=== PATIENT | male | born 1985 | race Caucasian/White ===

== ENCOUNTER 2018-06-06 18:26 | Emergency (ER) | payer OTHER ==
[2018-06-06 18:39] VITALS: BP 123/72; PULSE 89; TEMP 97.9; BMI 35.5
--- NOTE | 2018-06-06 19:09 | PDOC ---
History of Present Illness - General Chief Complaint: Pain, Acute Stated Complaint: RIGHT CALF PAIN Time Seen by Provider: 06/06/18 18:53 History Source: Patient Exam Limitations: Clinical Condition - History of Present Illness Initial Comments: 06/06/18 19:06 Patient with no significant past medical history present with complaint of right calf muscle pain which started as pain to lower back and posterior thigh and has now gone down to right calf muscle. Patient reported pain to right side of the lower back and posterior calf muscle has improved but now has persistent pain to right calf muscle to which he describes 5/10 cramping pain. Patient denies any other symptoms.Patient did not take anything for pain Timing/Duration: 1 week Past History - Past Medical History Allergies/Adverse Reactions: Allergies Allergy/AdvReac Type Severity Reaction Status Date / Time No Known Allergies Allergy Verified 12/01/15 20:54 Home Medications: Ambulatory Orders Methocarbamol [Robaxin -] 500 mg PO BID PRN #14 tablet 06/06/18 Naproxen 500 mg PO BID PRN #20 tablet 06/06/18 COPD: No CHF: No HTN: No - Surgical History Lung Surgery: No - Immunization History Immunization Up to Date: Yes - Suicide/Smoking/Psychosocial Hx Smoking Status: Yes Smoking History: Current every day smoker Have you smoked in the past 12 months: No Number of Cigarettes Smoked Daily: 24 Information on smoking cessation initiated: No Hx Alcohol Use: No Drug/Substance Use Hx: No Substance Use Type: None Review of Systems - Review of Systems Able to Perform ROS?: Yes Is the patient limited Panamanian proficient: No Constitutional: No: Weakness HEENTM: No: Eye Pain, Blurred Vision, Recent change in vision Respiratory: No: Symptoms reported Cardiac (ROS): No: Symptoms Reported ABD/GI: No: Nausea, Vomiting Musculoskeletal: Yes: See HPI, Muscle Pain (right calf). No: Joint Swelling, Muscle Weakness, Joint Stiffness Integumentary: No: Bruising, Change in Color, Erythema Neurological: No: Numbness, Paresthesia, Tingling, Weakness All Other Systems: Reviewed and Negative *Physical Exam - Vital Signs Last Vital Signs Temp Pulse Resp BP Pulse Ox 97.9 F 89 18 123/72 97 06/06/18 18:37 06/06/18 18:37 06/06/18 18:37 06/06/18 18:37 06/06/18 18:37 - Physical Exam Comments: 06/06/18 19:09 GENERAL: Well developed, well nourished. Awake and alert. No acute distress. CARDIOVASCULAR: Regular rate and rhythm. No murmurs, rubs, or gallops. PULMONARY: No evidence of respiratory distress. Lungs clear to auscultation bilaterally. No wheezing, rales or rhonchi. ABDOMINAL: Soft. Non-tender. Non-distended. No rebound or guarding. No organomegaly. Normoactive bowel sounds MUSCULOSKELETAL : mild tenderness over posterior calf muscle. No bony deformities EXTREMITIES: No cyanosis. No clubbing. No edema. mild right calf tenderness. negative horman' s sign. no increased warmth or erythema to LE b/l. SKIN: Warm and dry. Normal capillary refill. NEUROLOGICAL: Alert, awake, appropriate. No motor deficits in the lower extremities. Gait is normal without ataxia. PSYCHIATRIC: Cooperative. Good eye contact. Appropriate mood and affect. General Appearance: Yes: Nourished, Appropriately Dressed. No: Apparent Distress Moderate Sedation - Procedure Monitoring Vital Signs: Procedure Monitoring Vital Signs Temperature 97.9 F 06/06/18 18:37 Pulse Rate 89 06/06/18 18:37 Respiratory Rate 18 06/06/18 18:37 Blood Pressure 123/72 06/06/18 18:37 O2 Sat by Pulse Oximetry (%) 97 06/06/18 18:37 ED Treatment Course - RADIOLOGY Radiology Studies Ordered: Category Date Time Status DUPLEX VASCUL US-1 LEG [US] Stat Ultrasound 06/06/18 18:57 Ordered Medical Decision Making - Medical Decision Making 06/06/18 19:11 Patient with no significant past medication present with complaint of right calf pain which started as crampy lower back pain radiating down to posterior right thigh down to right lower leg and now has localized pain to right calf muscle for week. Patient denies any numbness or tingling sensation. Exam significant for mild tenderness over right calf muscle. No erythema or increased warmth to lower extremity bilateral. Negative Homans sign. Symptoms likely muscle strain and less likely DVT. Duplex of right lower extremity ordered to rule out DVT. Patient was discharged home on NSAIDs and muscle relaxer if negative duplex. 06/06/18 19:55 Duplex ultrasound of right lower extremity negative for DVT. Patient symptoms likely muscle spasm is stable for discharge on NSAIDs and muscle relaxer with orthopedist follow-up as needed. *DC/Admit/Observation/Transfer Diagnosis at time of Disposition: Muscle spasm of calf - Discharge Dispostion Disposition: HOME Condition at time of disposition: Stable Decision to Admit order: No - Prescriptions Prescriptions: Methocarbamol [Robaxin -] 500 mg PO BID PRN #14 tablet PRN Reason: muscle cramps Naproxen 500 mg PO BID PRN #20 tablet PRN Reason: pain - Referrals Referrals: Rashawn Meade MD [Primary Care Provider] - Bakari Moore MD [Staff Physician] - - Patient Instructions Printed Discharge Instructions: DI for Nocturnal Leg Cramps Additional Instructions: Your ultrasound of the leg was normal and shows no DVT. Your symptoms is likely from muscle spasm. Take medication as needed for pain. Follow-up referred orthopedics if symptoms persist for more than 4 days. - Post Discharge Activity
== END 2018-06-06 20:02 | disposition home or self-care (01) ==
LOC: JERFT 18:26
DX: R25.2 Cramp and spasm (principal); M62.830 Muscle spasm of back
CPT/HCPCS: 93971-TC; 99281-25

== ENCOUNTER 2018-06-20 16:04 | Emergency (ER) | payer OTHER ==
--- NOTE | 2018-06-20 16:12 | PDOC ---
Rapid Medical Evaluation Time Seen by Provider: 06/20/18 16:10 Medical Evaluation: Allergies Allergy/AdvReac Type Severity Reaction Status Date / Time No Known Allergies Allergy Verified 12/01/15 20:54 06/20/18 16:10 Pt presents for R thigh pain radiating to the calf for one month. Pt was evaluated in our ED on 06/06/18 for similar symptoms Exam: Ambulatory with limp, NAD Orders: Nothing Pt to proceed to ED for further evaluation Discharge Disposition - Diagnosis Thigh pain Qualifiers: Laterality: right Qualified Code(s): M79.651 - Pain in right thigh - Referrals Referrals: Rashawn Meade MD [Primary Care Provider] - - Patient Instructions - Post Discharge Activity
[2018-06-20 16:13] VITALS: BP 143/93; PULSE 76; TEMP 98.6; BMI 34.1
--- NOTE | 2018-06-20 16:35 | PDOC ---
History of Present Illness - General Chief Complaint: Pain, Acute Stated Complaint: Pain Time Seen by Provider: 06/20/18 16:10 - History of Present Illness Initial Comments: 06/20/18 16:31 33-year-old male without comorbidities presents for lower back pain with right- sided leg radicular symptoms 2 weeks. Recently seen in the emergency room he was given a prescription for Naprosyn and Robaxin which did not really help him.. He has no systemic symptoms. Also no loss of bowel bladder function Past History - Past Medical History Allergies/Adverse Reactions: Allergies Allergy/AdvReac Type Severity Reaction Status Date / Time No Known Allergies Allergy Verified 06/20/18 16:21 Home Medications: Ambulatory Orders Cyclobenzaprine HCl [Flexeril 10 mg] 10 mg PO HS PRN #10 tablet 06/20/18 Methocarbamol [Robaxin -] 500 mg PO BID 06/20/18 Methylprednisolone [Medrol Dose Markell] 4 mg PO ASDIR #21 tablet 06/20/18 Naproxen [Naprosyn] 500 mg PO BID 06/20/18 COPD: No CHF: No HTN: No - Surgical History Lung Surgery: No - Immunization History Immunization Up to Date: Yes - Suicide/Smoking/Psychosocial Hx Smoking Status: Yes Smoking History: Current every day smoker Have you smoked in the past 12 months: No Number of Cigarettes Smoked Daily: 20 Information on smoking cessation initiated: Yes Hx Alcohol Use: No Drug/Substance Use Hx: No Substance Use Type: None Review of Systems - Review of Systems Musculoskeletal: Yes: See HPI, Back Pain *Physical Exam - Vital Signs Last Vital Signs Temp Pulse Resp BP Pulse Ox 98.6 F 76 20 143/93 99 06/20/18 16:09 06/20/18 16:09 06/20/18 16:09 06/20/18 16:09 06/20/18 16:09 - Physical Exam Comments: 06/20/18 16:32 Lumbar spine skin color and temperature are normal range of motion is limited There is mild tenderness about the right sided paralumbar musculature with palpable spasm. No midline tenderness. 5 out of 5 strength in bilateral lower extremities without gross sensorimotor deficits. Thighs and calves are soft and nontender. Positive straight leg raise test on the right negative on the left neurovascularly intact without gross sensorimotor deficits. Moderate Sedation - Procedure Monitoring Vital Signs: Procedure Monitoring Vital Signs Temperature 98.6 F 06/20/18 16:09 Pulse Rate 76 06/20/18 16:09 Respiratory Rate 20 06/20/18 16:09 Blood Pressure 143/93 06/20/18 16:09 O2 Sat by Pulse Oximetry (%) 99 06/20/18 16:09 *DC/Admit/Observation/Transfer Diagnosis at time of Disposition: Lumbar radiculopathy Diagnosis at time of Disposition: (Ruled Out): Thigh pain - Discharge Dispostion Disposition: HOME Condition at time of disposition: Stable Decision to Admit order: No - Prescriptions Prescriptions: Cyclobenzaprine HCl [Flexeril 10 mg] 10 mg PO HS PRN #10 tablet PRN Reason: Muscle Spasms Methylprednisolone [Medrol Dose Markell] 4 mg PO ASDIR #21 tablet - Referrals Referrals: Rashawn Meade MD [Primary Care Provider] - Bakari Will MD [Staff Physician] - - Patient Instructions Printed Discharge Instructions: Lumbar Radiculopathy, DI for Lumbar Radiculopathy Additional Instructions: Please discontinue the Naprosyn and the Robaxin should you have any left. Start the Medrol Dosepak and Flexeril tomorrow please take the medication as directed and follow-up with spine surgery in 2-3 days for further evaluation and treatment options. Return to the emergency room should you have any further issues. - Post Discharge Activity
== END 2018-06-20 16:38 | disposition home or self-care (01) ==
LOC: JERFT 16:04
DX: M54.16 Radiculopathy, lumbar region (principal); F17.210 Nicotine dependence, cigarettes, uncomplicated
CPT/HCPCS: 99281-25